=== PATIENT | female | born 1980 | race African-American/Black ===

== ENCOUNTER 2018-07-14 23:17 | Emergency (ER) | payer OTHER ==
[~2018-07-14] VITALS: Ht 162.6 cm; Wt 74.4 kg
--- NOTE | 2018-07-14 23:43 | NUR ---
Dr. Sanford at bedside for MSE.
[2018-07-14] MEDS ORDERED: NAPROXEN 500 MG TABLET ONE (23:51)
--- NOTE | 2018-07-14 23:55 | NUR ---
Patient discharged to home in stable conditon. Written and verbal after care instructions given. Patient verbalizes understanding of instructions. Pt ambulated out of ER with steady gait, no acute signs of distress, VSS, all belongings taken.
[2018-07-14 23:57] VITALS: BP 139/56
[2018-07-15] MEDS ORDERED: NAPROXEN 500 MG TABLET PO ONE
== END 2018-07-14 23:57 | disposition home or self-care (01) ==
LOC: ER 23:17
DX: S16.1XXA Strain of muscle, fascia and tendon at neck level, initial encounter (principal); S39.012A Strain of muscle, fascia and tendon of lower back, initial encounter; R51 Headache; V49.9XXA Car occupant (driver) (passenger) injured in unspecified traffic accident, initial encounter; Y93.89 Activity, other specified; Y92.89 Other specified places as the place of occurrence of the external cause; Y99.8 Other external cause status
CPT/HCPCS: A4663

== ENCOUNTER 2020-07-22 19:37 | Emergency (ER) | payer OTHER ==
[~2020-07-22] VITALS: Ht 170.2 cm; Wt 72.6 kg
--- NOTE | 2020-07-22 20:05 | NUR ---
Dr. Taveras at bedside MSE in progress.
[2020-07-22 20:19] VITALS: BP 119/77
== END 2020-07-22 20:19 | disposition home or self-care (01) ==
LOC: ER 19:40
DX: T16.2XXA Foreign body in left ear, initial encounter (principal); X58.XXXA Exposure to other specified factors, initial encounter; Y93.E8 Activity, other personal hygiene; Y92.039 Unspecified place in apartment as the place of occurrence of the external cause; Y99.8 Other external cause status; M79.7 Fibromyalgia
CPT/HCPCS: A4663

== ENCOUNTER 2022-01-21 17:10 | Emergency (ER) | payer OTHER ==
[~2022-01-21] VITALS: Ht 167.6 cm; Wt 7.3 kg
[2022-01-21] MEDS ORDERED: CEPH500T PO ×2 (17:51→18:02)
[2022-01-21] MEDS ORDERED: ACETAMINOPHEN ES 500 MG TABLET ONE (18:04)
[2022-01-21] MEDS ORDERED: ACETAMINOPHEN ES 500 MG TABLET PO ONE (18:15)
--- NOTE | 2022-01-21 18:19 | NUR ---
Patient discharged to home in stable condition. Written and verbal after care instructions given. Patient verbalizes understanding of instructions. Stressed follow up or return to ER for worsening s/s.
[2022-01-21 18:21] VITALS: BP 121/80
== END 2022-01-21 18:20 | disposition home or self-care (01) ==
LOC: ER 17:10
DX: L03.011 Cellulitis of right finger (principal); Z88.6 Allergy status to analgesic agent
CPT/HCPCS: A4663; A9150

== ENCOUNTER 2022-01-24 11:35 | Emergency (ER) | payer OTHER ==
[~2022-01-24] VITALS: Ht 157.5 cm; Wt 68.0 kg
[~2022-01-24 11:35] MED LIST: CEPH500T PO
--- NOTE | 2022-01-24 11:45 | NUR ---
Pt. walked to the ER c/o of right thumb pain, redness and swollen. MD evaluated patient at bedside.
[2022-01-24] MEDS ORDERED: LIDOCAINE HCL 1% 20 ML VIAL ONE (11:46)
[2022-01-24] MEDS ORDERED: LIDOCAINE HCL 1% 20 ML VIAL IJ ONE (12:00)
[2022-01-24] MEDS ORDERED: SULFAMETH/TRIMETH 800/160 MG TABLET PO ONE (12:15)
[2022-01-24] MEDS ORDERED: SULFAMETH/TRIMETH 800/160 MG TABLET ONE (12:21)
[2022-01-24] MEDS ORDERED: SULF1TAB48 PO (12:26)
[2022-01-24] MEDS ORDERED: HYDR-3972 PO (12:36)
[2022-01-24] MEDS ORDERED: IBUPROFEN 600 MG TABLET ONE (12:38)
[2022-01-24] MEDS ORDERED: HYDROCODONE/APAP 10-325 MG TABLET ONE (12:42)
[2022-01-24] MEDS ORDERED: IBUPROFEN 600 MG TABLET PO ONE (12:45)
[2022-01-24] MEDS ORDERED: HYDROCODONE/APAP 10-325 MG TABLET PO ONE (12:45)
[2022-01-24 14:36] VITALS: BP 135/88
== END 2022-01-24 14:39 | disposition home or self-care (01) ==
LOC: ER 11:35
DX: L03.012 Cellulitis of left finger (principal); R42 Dizziness and giddiness
CPT/HCPCS: 26011; 87070; 99283; J3490; A4663